=== PATIENT | female | born 1995 | race Caucasian/White ===

== ENCOUNTER 2024-11-01 13:37 | Outpatient (CLI) | payer MEDICAID | END 2024-11-01 23:59 | disposition home or self-care (01) | LOC: MRI 13:37 | PROVIDERS: ATTEND Physician Assistant | DX: M48.02 Spinal stenosis, cervical region (principal); M54.12 Radiculopathy, cervical region; M54.2 Cervicalgia; M54.6 Pain in thoracic spine; M79.10 Myalgia, unspecified site | CPT/HCPCS: 72141; 72146 ==